=== PATIENT | female | born 1990 | race Two or more races ===

== ENCOUNTER 2023-01-15 10:05 | Emergency (ER) | payer OTHER ==
[~2023-01-15] VITALS: Ht 157.5 cm; Wt 54.0 kg
[2023-01-15 10:49] VITALS: BP 100/62; PULSE 80; RESP 12; TEMP 98.2; O2SAT 97
[2023-01-15] MEDS ORDERED: IBUPROFEN 600 MG TAB PO ONE (11:30)
[2023-01-15] MEDS ORDERED: SILVER SULFADIAZINE 1 % TOPICAL CREAM 50GM TOP ONE (11:30)
[2023-01-15] MEDS ORDERED: BAC09TP TOP (12:00)
[2023-01-15] MEDS ORDERED: TETANUS-DIPTH-ACEL PERTUSSIS 0.5ML SYR Tdap IM ONE (12:15)
== END 2023-01-15 12:33 | disposition home or self-care (01) ==
LOC: ER 10:05
DX: T25.212A Burn of second degree of left ankle, initial encounter (principal); X12.XXXA Contact with other hot fluids, initial encounter; Y93.89 Activity, other specified; Y92.89 Other specified places as the place of occurrence of the external cause; Y99.8 Other external cause status
CPT/HCPCS: 16020; 90471; 90715

== ENCOUNTER 2023-01-18 09:23 | Emergency (ER) | payer OTHER ==
[~2023-01-18] VITALS: Ht 157.5 cm; Wt 54.5 kg
[~2023-01-18 09:23] MED LIST: BAC09TP TOP
[2023-01-18 09:56] VITALS: BP 114/68; PULSE 83; RESP 16; TEMP 98.3; O2SAT 98
[2023-01-18] MEDS ORDERED: CEPH500C PO (10:22)
[2023-01-18] MEDS ORDERED: NAPR-746 PO (10:22)
== END 2023-01-18 10:28 | disposition home or self-care (01) ==
LOC: ER 09:23
DX: T25.222D Burn of second degree of left foot, subsequent encounter (principal); Z79.899 Other long term (current) drug therapy; Z88.0 Allergy status to penicillin; X08.8XXD Exposure to other specified smoke, fire and flames, subsequent encounter